=== PATIENT | female | born 1995 | race Caucasian/White ===

== ENCOUNTER → 2018-01-02 13:57 | Outpatient (CLI) | payer SELFPAY ==
[2018-01-02 15:45] LABS: Color, Urine Yellow (Yellow); Glucose, Dipstick Normal (Normal); Ketone-Dipstick Negative (Negative); Leukocyte Esterase-Dipstick Negative /ul (Negative); Nitrite-Dipstick Negative (Negative); Occult Blood-Urine Negative /ul (Negative); Protein-Dipstick Negative (Negative); Urine Bilirubin Dipstick Negative (Negative); Urine Clarity Clear (Clear); Urine Urobilinogen Normal (Normal)
[2018-01-02 15:56] LABS: Absolute Lymphocyte Count 1.27 X10^3/ul (0.83-4.51); Basophil# 0.02 X10^3/uL; Basophil% 0.2 % (0-1); Eosinophil# 0.04 X10^3/uL; Eosinophils% 0.4 % (0-5); Hematocrit 34.6 % (37-47); Hemoglobin 11.3 g/dl (12.0-15.0); Lymphocyte # 1.27 X10^3/ul (4.0); Lymphocyte % 13.4 % (19-41); Mean Corp Hgb Conc 32.7 g/gl (32-36); Mean Corpuscular Hgb 32.4 pg (27.0-32.0); Mean Corpuscular Volume 99.1 fL (81-99); Mean Platelet Vol. 12.8 fl (6.2-12.0); Monocyte# 0.98 X10^3/uL; Monocyte% 10.3 % (0-10); Neutrophil # 7.03 X10^3/uL (2.7-7.7); Platelet Count 125 K/mm3 (150-450); RBC Distribution Width CV 12.8 % (11.6-14.6); RBC Distribution Width SD 46.4 fl (35.1-43.9); Red Blood Count 3.49 M/mm3 (4.2-5.4); White Blood Count 9.5 K/mm3 (4.4-11.0)
[2018-01-02 16:00] LABS: POSITIVE COUNT NO; POSITIVE DIFFERENTIAL NO; POSITIVE MORPHOLOGY NO
[2018-01-02 16:30] LABS: Thyroid Stim Hormone (TSH) 1.05 uIU/mL (0.358-3.74)
[2018-01-02 16:47] LABS: Amphetamine Urine VISTA NEGATIVE (<1000 ng/mL); Barbiturate Urine VISTA NEGATIVE (< 200 ng/mL); Benzodiazepine Urine VISTA NEGATIVE (< 200 ng/mL); Cocaine Urine VISTA NEGATIVE (< 300 ng/mL); Ecstacy Urine VISTA NEGATIVE (< 500 ng/mL); Methadone Urine VISTA NEGATIVE (< 300 ng/mL); PCP Urine VISTA NEGATIVE (< 25 ng/mL); THC Urine VISTA POSITIVE (< 50 ng/mL); Vista UDS pH Range 7
[2018-01-02 16:54] LABS: HIV - WCH Non-Reactive (Nonreactive); Rubella IgG 158.4 IU/mL
[2018-01-02 17:20] LABS: COTININE Drug Screen Positive (<200 ng/mL)
[2018-01-02 18:28] LABS: Neisserai gonorrhoeae by PCR Negative (Negative); Probe Check PASS
[2018-01-02 18:30] LABS: Chlamydia Trachomatis by PCR POSITIVE (Negative)
[2018-01-04 03:47] LABS: Prenatal RPR NONREACTIVE (NONREACTIVE)
[2018-01-04 07:06] LABS: HEPATITIS B SURFACE AG Negative (Negative); Hep C Antibodies <0.1 s/co ratio (0.0-0.9)
== END ==
LOC: WOBLAB 14:02
PROVIDERS: Visit Provider Obstetrics & Gynecology
DX: Z34.83 Encounter for supervision of other normal pregnancy, third trimester (principal); Z11.3 Encounter for screening for infections with a predominantly sexual mode of transmission
CPT/HCPCS: 36415; 80307; 81002; 84443; 85025; 86703; 86762; 86803; 87340; 87491; 87591

== ENCOUNTER → 2018-01-09 12:53 | Outpatient (CLI) | payer SELFPAY ==
[2018-01-09 15:57] LABS: Glucose Challenge Gest 1H 50g 151 mg/dL (70-140); Hematocrit 34.3 % (37-47); Hemoglobin 11.2 g/dl (12.0-15.0); Mean Corp Hgb Conc 32.7 g/gl (32-36); Mean Corpuscular Hgb 32.4 pg (27.0-32.0); Mean Corpuscular Volume 99.1 fL (81-99); Mean Platelet Vol. 12.9 fl (6.2-12.0); Platelet Count 119 K/mm3 (150-450); RBC Distribution Width CV 12.7 % (11.6-14.6); RBC Distribution Width SD 46.1 fl (35.1-43.9); Red Blood Count 3.46 M/mm3 (4.2-5.4); Scan Indicated on CBC? Y/N NO; White Blood Count 9.5 K/mm3 (4.4-11.0)
== END ==
LOC: WOBLAB 12:53
PROVIDERS: Visit Provider Obstetrics & Gynecology
DX: Z34.83 Encounter for supervision of other normal pregnancy, third trimester (principal)
CPT/HCPCS: 36415; 82950; 85027; 86850

== ENCOUNTER → 2018-01-18 07:38 | Outpatient (CLI) | payer SELFPAY ==
[2018-01-18 08:53] LABS: Glucose GTT-Gestation. Fasting 81 mg/dL (<105)
[2018-01-18 10:01] LABS: Glucose GTT-Gestational 1 Hr 192 mg/dL (<190)
[2018-01-18 11:29] LABS: Glucose GTT-Gestational 3 Hr 114 L (<145)
[2018-01-18 11:29] LABS: Glucose GTT-Gestational 2 Hr 167 mg/dL (<165)
== END ==
LOC: LAB 07:40
PROVIDERS: Visit Provider Obstetrics & Gynecology
DX: O24.913 Unspecified diabetes mellitus in pregnancy, third trimester (principal); Z3A.00 Weeks of gestation of pregnancy not specified
CPT/HCPCS: 36415; 82951; 82952

== ENCOUNTER 2018-02-14 11:30 | Outpatient (RCR) | payer MEDICAID, SELFPAY | END 2018-02-14 23:59 | LOC: DC 11:30 | PROVIDERS: Visit Provider Obstetrics & Gynecology | DX: O24.410 Gestational diabetes mellitus in pregnancy, diet controlled (principal); Z71.3 Dietary counseling and surveillance | CPT/HCPCS: 97802; G0108 ==

== ENCOUNTER → 2018-02-21 11:28 | Outpatient (CLI) | payer MEDICAID, SELFPAY ==
[2018-02-21 17:00] LABS: Group B Strep DNA By PCR Negative (Negative); Internal Control PASS; Probe Check PASS; Specimen Processing Control PASS
[2018-02-21 17:09] LABS: Chlamydia Trachomatis by PCR Negative (Negative); Neisserai gonorrhoeae by PCR Negative (Negative); Probe Check PASS; Sample Adequacy Control PASS; Specimen Processing Control PASS
== END ==
PROVIDERS: Visit Provider Obstetrics & Gynecology
DX: Z36.85 Encounter for antenatal screening for Streptococcus B (principal); Z86.19 Personal history of other infectious and parasitic diseases
CPT/HCPCS: 87081; 87491; 87591; 87653

== ENCOUNTER → 2018-03-13 14:57 | Outpatient (CLI) | payer MEDICAID, SELFPAY ==
[2018-03-13 15:42] LABS: Hemoglobin 12.8 g/dl (12.0-15.0); Red Blood Count 3.86 M/mm3 (4.2-5.4); White Blood Count 7.4 K/mm3 (4.4-11.0)
[2018-03-13 15:43] LABS: Hematocrit 38.1 % (37-47); Mean Corp Hgb Conc 33.6 g/gl (32-36); Mean Corpuscular Hgb 33.2 pg (27.0-32.0); Mean Corpuscular Volume 98.7 fL (81-99); Mean Platelet Vol. 13.1 fl (6.2-12.0); Platelet Count 118 K/mm3 (150-450); RBC Distribution Width CV 12.6 % (11.6-14.6); RBC Distribution Width SD 44.5 fl (35.1-43.9); Scan Indicated on CBC? Y/N NO
== END ==
PROVIDERS: Visit Provider Obstetrics & Gynecology
DX: Z34.83 Encounter for supervision of other normal pregnancy, third trimester (principal); D69.59 Other secondary thrombocytopenia
CPT/HCPCS: 36415; 85027

== ENCOUNTER 2018-03-20 06:57 | Inpatient (IN) | payer MEDICAID, SELFPAY ==
[2018-03-20] MEDS: Lactated Ringers 1,000 ML 50 ML IV ×2 (12:45→22:08)
[2018-03-20 12:59] LABS: Hematocrit 38.3 % (37-47); Hemoglobin 12.8 g/dl (12.0-15.0); Mean Corp Hgb Conc 33.4 g/gl (32-36); Mean Corpuscular Hgb 32.6 pg (27.0-32.0); Mean Corpuscular Volume 97.5 fL (81-99); Mean Platelet Vol. 13.5 fl (6.2-12.0); Platelet Count 111 K/mm3 (150-450); RBC Distribution Width CV 12.5 % (11.6-14.6); RBC Distribution Width SD 44.8 fl (35.1-43.9); Red Blood Count 3.93 M/mm3 (4.2-5.4); Scan Indicated on CBC? Y/N NO; White Blood Count 9.7 K/mm3 (4.4-11.0)
[2018-03-20 13:05] LABS: Bedside Glucose 63 mg/dL (70-110)
[2018-03-20] MEDS: Oxytocin 30 units/NS 500 ml 30 UNITS/500 ML IV.SOLN IV (13:13)
[2018-03-20 13:17] VITALS: BMI 26.2
[2018-03-20 14:56] LABS: Bedside Glucose 72 mg/dL (70-110)
--- NOTE | 2018-03-20 17:58 | PCM.PN.OB ---
Subjective: Seems comfortable Objective: Afeb VSS FHR tracing Cat 1. - Physical Exam General: Alert, Oriented x3, Cooperative, No apparent distress Lungs: Clear to auscultation, Normal air movement Cardiovascular: Regular rate, Regular Rhythm Abdomen: Gravid, Appropriate for Gestational Age Extremities: No edema, No Calf Tenderness Skin: No rashes Neurological: Neuro grossly intact Psych/Mental Status: Normal Affect Comment: CE 60/-3 Weight: 148 lb Body Mass Index (BMI) 26.2 Laboratory Tests Past 24 Hrs 03/20/18 03/20/18 03/20/18 12:45 12:45 12:45 WBC 9.7 RBC 3.93 L Hgb 12.8 Hct 38.3 MCV 97.5 MCH 32.6 H MCHC 33.4 RDW 12.5 RDW Differential 44.8 H Plt Count 111 L MPV 13.5 H Blood Type O NEGATIVE Antibody Screen TNP NEGATIVE POC Glucose 03/20/18 03/20/18 14:47 13:03 POC Glucose 72 63 L Medical Necessity - Tobacco Use Smoking Status: Former smoker Assessment/Plan Admission for oligohydramnios, gestational diabetes. AROM performed with scant fluid noted. IUPC placed. Pitocin at 10mu/min
[2018-03-20 18:11] LABS: Bedside Glucose 83 mg/dL (70-110)
[2018-03-20] MEDS: 0.9% Saline Lock 10 ML Syringe IV (21:13)
[2018-03-20] MEDS: Nalbuphine 10 MG/ML Ampul IV (21:13)
[2018-03-20] MEDS: Mag Hydrox/Al Hydrox/Simeth 30 ML UDC PO (21:16)
[2018-03-20 22:05] LABS: Bedside Glucose 69 mg/dL (70-110)
[2018-03-20] MEDS: fentaNYL-bupivacaine (epidural) 100 ML BAG EPIDURAL (23:12)
[2018-03-21 00:06] LABS: Bedside Glucose 81 mg/dL (70-110)
[2018-03-21] MEDS: Lactated Ringers 1,000 ML 50 ML IV ×2 (01:14→05:22)
[2018-03-21 02:01] LABS: Bedside Glucose 86 mg/dL (70-110)
[2018-03-21 02:01] LABS: Bedside Glucose 86 mg/dL (70-110)
[2018-03-21 03:11] LABS: Bedside Glucose 89 mg/dL (70-110)
[2018-03-21] MEDS: fentaNYL-bupivacaine (epidural) 100 ML BAG EPIDURAL (04:05)
[2018-03-21 04:10] LABS: Bedside Glucose 89 mg/dL (70-110)
[2018-03-21 05:21] LABS: Bedside Glucose 85 mg/dL (70-110)
--- NOTE | 2018-03-21 07:04 | PCM.PN.OB ---
Subjective: Having some nausea. Objective: Afeb VSS heart rate tracing overall Cat 1 with some small decels with contractions but good recovery. - Physical Exam General: Alert, Oriented x3, Cooperative, No apparent distress Lungs: Clear to auscultation, Normal air movement Cardiovascular: Regular rate, Regular Rhythm Abdomen: Soft, Non Tender, Non-Distended, Gravid, Appropriate for Gestational Age Extremities: No edema Neurological: Neuro grossly intact Psych/Mental Status: Normal Affect Comment: FD/+1 station Weight: 148 lb Body Mass Index (BMI) 26.2 Intake and Output for Last 24 Hours 03/19/18 03/20/18 03/21/18 23:59 23:59 23:59 Intake Total 1642 / 1642 3649.5 / 3649.5 Output Total 1900 / 1900 1200 / 1200 Balance -258 / -258 2449.5 / 2449.5 Laboratory Tests Past 24 Hrs 03/20/18 03/20/18 03/20/18 12:45 12:45 12:45 WBC 9.7 RBC 3.93 L Hgb 12.8 Hct 38.3 MCV 97.5 MCH 32.6 H MCHC 33.4 RDW 12.5 RDW Differential 44.8 H Plt Count 111 L MPV 13.5 H Blood Type O NEGATIVE Antibody Screen TNP NEGATIVE POC Glucose 03/21/18 03/21/18 03/21/18 05:03 04:05 03:04 POC Glucose 85 89 89 03/21/18 03/21/18 03/21/18 01:54 01:01 00:01 POC Glucose 86 86 81 03/20/18 03/20/18 03/20/18 22:03 18:01 14:47 POC Glucose 69 L 83 72 03/20/18 13:03 POC Glucose 63 L Medical Necessity - Tobacco Use Smoking Status: Former smoker Assessment/Plan Induction of labor some oligohydramnios, GDM, likely SGA baby. Will start pushing soon.
[2018-03-21 07:06] LABS: Bedside Glucose 89 mg/dL (70-110)
[2018-03-21] MEDS: Oxytocin 30 units/NS 500 ml 30 UNITS/500 ML IV.SOLN 334 UNITS IV (07:25)
--- NOTE | 2018-03-21 07:50 | PCM.OB.VAG ---
Vaginal Delivery Maternal Presentation: Medically Indicated Induction Admitted for induction of labor with oligohydramnios, GDM, likely SGA fetus. Method of Induction: Pitocin Medical Reason for Induction: Maternal Medical Condition: list: - GDM well controlled with diet Amniotic Membrane Rupture Type: Artificial Rupture of Membrane time: 1800 Amniotic Fluid Description: Clear Final SAMARA: 03/18/18 Final SAMARA Source: US <20 weeks Gestational age: 40 Weeks and 3 Days Date of Procedure: 03/21/18 Pre-Operative Diagnosis: Labor Post-Operative Diagnosis: labor Surgery/ Procedure Performed: Spontaneous Vaginal Delivery Anesthesiologist: Benji Winters Type of Anesthesia: Epidural Description of Procedure: Rika was admitted and eventually started on pitocin for induction of labor. AROM was performed about 5 hours later. She progressed then to FD over 12 hours then pushed for a short time to deliver a live male . There was a tight nuchal cord which was reduced after delivery of the baby. Delayed cord clamping was employed. The cord was then clamped and cut. Cord bloods were collected. Apgars were 8/9. The placenta delivered spontaneously intact with a centrally located 3VC. The uterus contracted well. A first degree posterior vaginal/left periurethral tear was repaired with 2-0 and 3-0 Vicryl suture. Presentation: Vertex Placental Delivery Description: Spontaneous Placenta Disposition: [facility] Percentage of Placenta Abruption: 0 Cord Vessel Description: 3 Vessels Nuchal Cord Compression: Without compression Cord Entanglement: Around neck x 1, tight Drain: Hong to straight drain Estimated Blood Loss: 250cc A gender: Male (1 minute): 8 (5 minute): 9 Episiotomy Description: None Laceration: Midline, Periurethral Extnsion/lac, Vaginal Extension/lac, 1st degree Medications given after delivery: IV Pitocin Complications: None
[2018-03-21] MEDS: Oxytocin 30 units/NS 500 ml 30 UNITS/500 ML IV.SOLN 167 UNITS IV (07:55)
--- NOTE | 2018-03-21 07:57 | PCM.DCVAG ---
Discharge Diet: No Restrictions Discharge Activity: Return to Normal Activity, No Restrictions, May Drive, May Shower Return to work on:: 05/20/18 May shower in (days): 0 May resume sexual activity in: 4-6 weeks Call your doctor if your incision/area has: Sudden Increased Bleeding, Increased Pain/ Swelling, Foul Smelling Discharge Call your doctor if you observe: Fever of 101 or Higher, Inability to urinate, Inability to have a bowel movement, Using more than one pad per hour, Shortness of breath, Chest pain, Calf discomfort, Uncontrolled pain Cleanse incision/area with: Soap & Water Additional Instructions: If you experience any of the following, contact your healthcare provider. Bleeding that soaks a pad every hour for 2 hours Fever 100.4 or higher Unrelieved incision or abdominal pain Swelling, redness, discharge or bleeding from your incision or episiotomy site Your incision begins to separate Problems urinating (including inability to urinate or burning while urinating). Visual changes Severe headache Flu-like symptoms Pain or redness in one of both of your breasts Pain, warmth, tenderness or swelling in your legs, especially the calf area Frequent nausea and vomiting Symptoms of depression or anxiety If you experience any of the following, call 911 or go to the nearest Emergency Room. Chest pain Problems breathing Seizure activity Partial or complete paralysis of a body part, slurred speech, weakness or drooping of the face, or a sudden inability to walk or hold your balance Allergies/Adverse Reactions: Allergies No Known Allergies Allergy (Verified 03/20/18 13:18) Medications to take at Discharge Ferrous Sulfate [Iron] 325 mg PO DAILY 03/20/18 Ibuprofen 600 mg PO Q6H PRN PRN #30 tab 03/21/18 The following prescriptions were given: Ibuprofen 600 mg PO Q6H PRN PRN #30 tab PRN Reason: pain or cramping Please Follow Up With: Jose Florence MD When: 6 weeks Primary Care Physician: Care Physician,No Primary [Primary Care Provider] - Test Results: Test results from this visit will be discussed in further detail at your follow-up appointment, if applicable. Proposed Discharge Date: 03/23/18
[2018-03-21 08:00] LABS: Bedside Glucose 86 mg/dL (70-110)
[2018-03-21] MEDS: Acetaminophen 500 MG Tablet 1000 MG PO ×2 (08:21→16:56)
[2018-03-21 11:30] VITALS: BP 119/64; PULSE 78; RESP 18; TEMP 36.9
[2018-03-21] MEDS: Ibuprofen 600 MG Tablet PO ×2 (12:40→18:58)
[2018-03-21 15:47] VITALS: BP 127/67; PULSE 78; RESP 18; TEMP 36.5
--- NOTE | 2018-03-21 15:50 | NURSING ---
Assisted to br. Pt unable to void at this time. Labial edema noted with L>R. Pt assisted to shower, Ice pack reapplied afterwards. Encouraged pt to change q 1 hr
--- NOTE | 2018-03-21 15:52 | NURSING ---
Labial edema slightly decreased. Pt took Motrin and using ice packs continuously
[2018-03-21 20:30] VITALS: BP 100/47; PULSE 72; RESP 18; TEMP 36.6; O2SAT 100
[2018-03-21 23:30] VITALS: BP 114/74; PULSE 75; RESP 18; TEMP 36.6; O2SAT 98
[2018-03-22] MEDS: Ibuprofen 600 MG Tablet PO (01:50)
[2018-03-22 05:00] VITALS: BP 111/52; PULSE 75; RESP 16; TEMP 37; O2SAT 98
[2018-03-22 05:40] LABS: Hematocrit 29.2 % (37-47); Hemoglobin 9.9 g/dl (12.0-15.0); Mean Corp Hgb Conc 33.9 g/gl (32-36); Mean Corpuscular Hgb 33.7 pg (27.0-32.0); Mean Corpuscular Volume 99.3 fL (81-99); Platelet Count 94 K/mm3 (150-450); RBC Distribution Width CV 12.4 % (11.6-14.6); RBC Distribution Width SD 43.2 fl (35.1-43.9); Red Blood Count 2.94 M/mm3 (4.2-5.4); White Blood Count 11.4 K/mm3 (4.4-11.0)
[2018-03-22 05:42] LABS: Scan Indicated on CBC? Y/N NO
[2018-03-22 08:20] VITALS: BP 106/61; PULSE 73; RESP 16; TEMP 36.4; O2SAT 97
--- NOTE | 2018-03-22 08:50 | PCM.PN.OB ---
Subjective: No specific complaints. Bleeding much co teacher now. Breast feeding. Objective: Afeb VSS. Hgb 9.9 platelets 94K (on admission 111K) - Physical Exam General: Alert, Oriented x3, Cooperative, No apparent distress Lungs: Clear to auscultation, Normal air movement Cardiovascular: Regular rate, Regular Rhythm Abdomen: Soft, Non Tender, Non-Distended, - - Fundus firm nontender Extremities: No edema, No Calf Tenderness Skin: No rashes Neurological: Neuro grossly intact Psych/Mental Status: Normal Affect Comment: Lochia light Vital Signs Temp Pulse Resp BP Pulse Ox 97.5 F L 73 16 106/61 97 03/22/18 08:20 03/22/18 08:20 03/22/18 08:20 03/22/18 08:20 03/22/18 08:20 Oxygen Delivery Method Room Air Weight: 148 lb Body Mass Index (BMI) 26.2 Intake and Output for Last 24 Hours 03/20/18 03/21/18 03/22/18 23:59 23:59 23:59 Intake Total 1642 / 1642 3649.5 / 3649.5 Output Total 1900 / 1900 1900 / 1900 Balance -258 / -258 1749.5 / 1749.5 Laboratory Tests Past 24 Hrs 03/21/18 03/22/18 10:30 05:16 WBC 11.4 H RBC 2.94 L Hgb 9.9 L Hct 29.2 L MCV 99.3 H MCH 33.7 H MCHC 33.9 RDW 12.4 RDW Differential 43.2 Plt Count 94 L MPV 13.0 H Screen NEGATIVE Baby's Blood Type O POSITIVE Baby's RUIZ NEGATIVE Medical Necessity - Tobacco Use Smoking Status: Former smoker Assessment/Plan Doing well on PP day#1. Continue routine PP care. Anticipate discharge home tomorrow.
[2018-03-22] MEDS: Acetaminophen 500 MG Tablet 1000 MG PO ×2 (09:48→21:28)
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
[2018-03-22 14:25] VITALS: BP 131/84; PULSE 91; TEMP 36.4; O2SAT 99
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
[2018-03-22 20:10] VITALS: BP 105/70; PULSE 88; RESP 18; TEMP 36.6
[2018-03-23 02:25] VITALS: BP 112/73; PULSE 78; RESP 18; TEMP 36.6
[2018-03-23] MEDS: Ibuprofen 600 MG Tablet PO ×2 (02:34→14:00)
[2018-03-23 08:00] VITALS: BP 125/66; PULSE 80; RESP 16; TEMP 36.3
--- NOTE | 2018-03-23 08:26 | PCM.PN.OB ---
Subjective: No complaints. Looks forward to going home today. Denies heavy lochia. Objective: AVSS - Physical Exam General: Alert, Oriented x3, Cooperative HEENT: Atraumatic, Normocephalic Lungs: Clear to auscultation, Normal air movement Cardiovascular: Regular rate, Regular Rhythm, Normal S1, Normal S2 Abdomen: Soft, Non Tender, Non-Distended, - - Fundus firm and nontender, lochia scant Extremities: No edema, No Calf Tenderness Neurological: Neuro grossly intact Psych/Mental Status: Normal Affect, Appropriate, Alert and oriented to time, place, person, mood and affect Vital Signs Temp Pulse Resp BP Pulse Ox 97.4 F L 80 16 125/66 H 99 03/23/18 08:00 03/23/18 08:00 03/23/18 08:00 03/23/18 08:00 03/22/18 14:25 Oxygen Delivery Method Room Air Weight: 67.132 kg Body Mass Index (BMI) 26.2 Intake and Output for Last 24 Hours 03/21/18 03/22/18 03/23/18 23:59 23:59 23:59 Intake Total 3649.5 / 3649.5 Output Total 1900 / 1900 Balance 1749.5 / 1749.5 Medical Necessity - Tobacco Use Smoking Status: Former smoker Assessment/Plan 22 yo PPD#2 s/p doing well. - O neg, infant O positive - Rhogam given -HBsAg neg, HC Ab neg, RPR nr, HIV neg, Rubella immune -routine -d/c home today
--- NOTE | 2018-03-23 08:36 | PCM.DC.SUM ---
Discharge Date and Diagnosis Date of Admission: 03/20/18 Date of Discharge: 03/23/18 Hospital Course and Treatment Consultations 03/21/18 07:45 Consult: Mental Health/Crisis Routine Reason for consult?: poor social situation Date Notified:: 03/21/18 Time notified:: 18:45 Operations: None Procedures: None Summary of Care Provided: The patient is a 22 year old F 1 admitted at 40 weeks 3 days gestation for scheduled induction of labor with history of oligohydramnios and well controlled gestational diabetes. She had an uncomplicated vaginal delivery the following day. Her post-operative course was unremarkable and she was discharged to home on post- day #2. Discharge Diet: No Restrictions Discharge Activity: Return to Normal Activity, No Restrictions, May Drive, May Shower Return to work on:: 05/20/18 May shower in (days): 0 May resume sexual activity in: 4-6 weeks Call your doctor if your incision/area has: Sudden Increased Bleeding, Increased Pain/ Swelling, Foul Smelling Discharge Call your doctor if you observe: Fever of 101 or Higher, Inability to urinate, Inability to have a bowel movement, Using more than one pad per hour, Shortness of breath, Chest pain, Calf discomfort, Uncontrolled pain Cleanse incision/area with: Soap & Water Home Medications: Medications to take at Discharge Ferrous Sulfate [Iron] 325 mg PO DAILY 03/20/18 Ibuprofen 600 mg PO Q6H PRN PRN #30 tab 03/21/18 Following Prescrptions Were Given to Patient: Ibuprofen 600 mg PO Q6H PRN PRN #30 tab PRN Reason: pain or cramping Primary Care Physician: Care Physician,No Primary [Primary Care Provider] - Please Follow Up With: Jose Florence MD Medical Necessity - Tobacco Use Smoking Status: Former smoker Meaningful Use Info Meaningful Use Diagnoses (Choose all that apply): None applicable
[2018-03-23 14:00] VITALS: BP 121/72; PULSE 64; RESP 16; TEMP 36.6; O2SAT 99
[2018-03-23 18:48] VITALS: BP 114/74; PULSE 84; RESP 16; TEMP 36.7; O2SAT 99
--- NOTE | 2018-03-26 09:01 | CASEMGMT ---
Social Work Labor and Delivery [facility] referral submitted today via the [facility]'s secure web based referral system. Patient and baby discharged home on 03-23-18. -SERENA Dunn, ANIMAL ATTENDANTS AND TRAINERS
== END 2018-03-23 18:55 | disposition home or self-care (01) | DRG 373 ==
PROVIDERS: Admitting Provider Obstetrics & Gynecology; Visit Provider Obstetrics & Gynecology
DX: O41.03X0 Oligohydramnios, third trimester, not applicable or unspecified (principal); O24.420 Gestational diabetes mellitus in childbirth, diet controlled; O71.82 Other specified trauma to perineum and vulva; O70.0 First degree perineal laceration during delivery; O69.1XX0 Labor and delivery complicated by cord around neck, with compression, not applicable or unspecified; Z87.891 Personal history of nicotine dependence; Z3A.40 40 weeks gestation of pregnancy; Z37.0 Single live birth
CPT/HCPCS: 59025; 59050; 82962; 85027; 85461; 86850; 86900; 90384; 99218; J7120; A4216; G0378; J2790

== ENCOUNTER → 2018-04-24 14:27 | Outpatient (CLI) | payer MEDICAID, SELFPAY ==
[2018-04-24 16:41] LABS: Progesterone Level 0.53 ng/mL (See Comment); hCG Titer Quant., Serum < 1 mIU/mL (<9 non-preg)
== END ==
PROVIDERS: Visit Provider Obstetrics & Gynecology
DX: Z30.014 Encounter for initial prescription of intrauterine contraceptive device (principal)
CPT/HCPCS: 36415; 84144; 84702

== ENCOUNTER → 2018-05-01 15:43 | Outpatient (CLI) | payer MEDICAID, SELFPAY ==
[2018-05-01 19:30] LABS: Chlamydia Trachomatis by PCR Negative (Negative); Neisserai gonorrhoeae by PCR Negative (Negative); Probe Check PASS; Sample Adequacy Control PASS; Specimen Processing Control PASS
== END ==
PROVIDERS: Visit Provider Obstetrics & Gynecology
DX: Z11.3 Encounter for screening for infections with a predominantly sexual mode of transmission (principal)
CPT/HCPCS: 87491; 87591